=== PATIENT | male | born 1975 | race Caucasian/White ===

== ENCOUNTER 2020-06-15 22:18 | Emergency (ER) | payer BC ==
[2020-06-15] MEDS ORDERED: Sodium Chloride 0.9% 10 ML Syringe FLUSH PRN (22:32)
[2020-06-15] MEDS ORDERED: Sodium Chloride 0.9% 1,000 ML IV SCH (22:45)
--- NOTE | 2020-06-15 23:22 | EDM.PDOC ---
ED HPI GENERAL MEDICAL PROBLEM - General Chief Complaint: Abdominal Pain Stated Complaint: ABDOMINAL PAIN Time Seen by Provider: 06/15/20 22:20 Source of Information: Reports: Patient History Limitations: Reports: No Limitations - History of Present Illness INITIAL COMMENTS - FREE TEXT/NARRATIVE: The patient has been having episodes of intense epigastric pain. He says this happens in the evening each time it occurs. The pain is intense across his upper abdomen. It is not associated with shortness of breath though deep breathing does exacerbate the pain. There is been no nausea or vomiting. He says the pain has lasted up until 4 hours or so. He has not come in for any kind of evaluation for this. Tonight after supper he had this episode about 30 minutes before arrival it started. By the time he got to the emergency department 30 minutes or so later the pain was abating. The pain has not been associated with sweating, shortness of breath, lightheadedness, syncope or near syncope, nor has she had any fever or other symptoms suggestive of acute medical illness or condition leading up to this. The patient takes no medications. He has no chronic conditions. He is a non-smoker. Epigastric Pain Score (Numeric/FACES): 7 - Related Data Allergies Allergy/AdvReac Type Severity Reaction Status Date / Time No Known Allergies Allergy Verified 06/15/20 22:24 Home Meds: Home Meds . [No Known Home Meds] 06/15/20 [History] Past Medical History - Past Surgical History Musculoskeletal Surgical History: Reports: Shoulder Surgery Other Musculoskeletal Surgeries/Procedures:: Rotator cuff Social & Family History - Tobacco Use Tobacco Use Status *Q: Never Tobacco User - Recreational Drug Use Recreational Drug Use: No ED ROS GENERAL - Review of Systems Review Of Systems: Comprehensive ROS is negative, except as noted in HPI. ED EXAM, GI/ABD - Physical Exam Exam: See Below Text/Narrative:: On initial exam the patient was quite uncomfortable with his abdominal pain but without any peritoneal signs. He settled down after this fairly briskly and was examined more thoroughly a short while later. He is alert and in no distress at all. Skin is warm and dry with normal turgor. Head normocephalic atraumatic. ENT grossly normal. Neck is supple without jugular venous distention patient is comfortable lying flat on the gurney. Lungs are clear breath sounds are full and equal bilaterally. Heart is regular without abnormal heart sounds. Abdomen is soft and no pain is elicited on deep palpation. No guarding or rebound. There is no peripheral edema cyanosis or clubbing of the digits. Neurologically the patient is grossly intact with fluent speech normal cognition and no deficits of motor or sensory function. #1 Interpretation EKG Date: 06/15/20 Time: 23:53 Rhythm: NSR Rate (Beats/Min): 70 [place]: Normal P-Wave: Present QRS: Normal ST-T: Normal QT: Normal Comparison: NA - No Prior EKG Course - Vital Signs Text/Narrative:: Patient settled down with supportive care. He received IV fluids. He received a GI cocktail without any sufficient change but by the time he received that his pain had pretty much resolved. He received Protonix 80 mg IV. Discussed fully with patient and his . The patient does not have a doctor but his has a primary care provider and she will make sure that he sees this provider and a referral is made to gastroenterology. There is some concern that the presentation may represent a cardiological issue but that is doubtful. The patient does have an elevated blood pressure though not in a range requiring intervention in the emergency department. If he continues to have blood pressure elevation as an outpatient he will need to be treated for that. It is recommended that for completeness the patient have a cardiology evaluation. Discussed fully with patient and . The presentation seems consistent with an esophageal spasm. Last Recorded V/S: Last Vital Signs Temp 36.5 C 06/15/20 22:20 Pulse 74 06/15/20 22:20 Resp 14 06/15/20 22:20 BP 169/104 H 06/15/20 22:20 Pulse Ox 98 06/15/20 22:20 - Orders/Labs/Meds Orders: Active Orders 24 hr Category Date Time Status EKG Documentation Completion [RC] STAT Care 06/15/20 22:32 Active Peripheral IV Care [RC] . DIRECTED Care 06/15/20 22:35 Active Abdomen Pelvis wo Cont [CT] Stat Exams 06/15/20 22:33 Taken Chest 1V Frontal [CR] Stat Exams 06/15/20 22:32 Taken Sodium Chloride 0.9% [Normal Saline] 1,000 ml Med 06/15/20 22:45 Active IV ASDIRECTED Sodium Chloride 0.9% [Saline Flush] Med 06/15/20 22:32 Active 10 ml FLUSH ASDIRECTED PRN Peripheral IV Insertion Adult [OM.PC] Stat Oth 06/15/20 22:33 Ordered Medication Orders Sodium Chloride (Normal Saline) 1,000 mls @ 150 mls/hr IV ASDIRECTED ONDINA Last Admin: 06/15/20 22:47 Dose: 150 mls/hr Documented by: EVONCOU Sodium Chloride (Sodium Chloride 0.9% 10 Ml Syringe) 10 ml FLUSH ASDIRECTED PRN PRN Reason: Keep Vein Open Last Admin: 06/15/20 22:47 Dose: 10 ml Documented by: EVONCOU Labs: Laboratory Tests 06/15/20 06/15/20 06/16/20 Range/Units 22:46 22:46 00:32 WBC 9.73 H (4.23-9.07) K/mm3 RBC 4.45 L (4.63-6.08) M/mm3 Hgb 13.1 L (13.7-17.5) gm/dl Hct 40.1 (40.1-51.0) % MCV 90.1 (79.0-92.2) fl MCH 29.4 (25.7-32.2) pg MCHC 32.7 (32.2-35.5) g/dl RDW Std Deviation 44.0 H (35.1-43.9) fL Plt Count 205 (163-337) K/mm3 MPV 9.9 (9.4-12.3) fl Neutrophils % (Manual) 29 L (40-60) % Band Neutrophils % 0 (0-10) % Lymphocytes % (Manual) 65 H (20-40) % Atypical Lymphs % 0 % Monocytes % (Manual) 6 (2-10) % Eosinophils % (Manual) 0 L (0.8-7.0) % Basophils % (Manual) 0 L (0.2-1.2) Platelet Estimate Adequate RBC Morph Comment Normal Sodium 144 (136-145) mEq/L Potassium 4.1 (3.5-5.1) mEq/L Chloride 104 (98-107) mEq/L Carbon Dioxide 29 (21-32) mEq/L Anion Gap 15.1 H (5-15) BUN 21 H (7-18) mg/dL Creatinine 1.4 H (0.7-1.3) mg/dL Est Cr Clr Drug Dosing 73.21 mL/min Estimated GFR (MDRD) 56 (>60) mL/min BUN/Creatinine Ratio 15.0 (14-18) Glucose 120 H (74-106) mg/dL Calcium 9.1 (8.5-10.1) mg/dL Magnesium 2.2 (1.8-2.4) mg/dl Total Bilirubin 0.8 (0.2-1.0) mg/dL AST 81 H (15-37) U/L ALT 92 H (16-63) U/L Alkaline Phosphatase 79 (46-116) U/L Troponin I < 0.017 (0.00-0.056) ng/mL C-Reactive Protein 0.6 (<1.0) mg/dL Total Protein 7.6 (6.4-8.2) g/dl Albumin 4.0 (3.4-5.0) g/dl Globulin 3.6 gm/dL Albumin/Globulin Ratio 1.1 (1-2) Amylase 50 (25-115) U/L Lipase 397 H (73-393) U/L Urine Color Yellow (Yellow) Urine Appearance Clear (Clear) Urine pH 6.5 (5.0-8.0) Ur Specific [place] 1.025 (1.005-1.030) Urine Protein Negative (Negative) Urine Glucose (UA) Negative (Negative) Urine Ketones Negative (Negative) Urine Occult Blood Negative (Negative) Urine Nitrite Negative (Negative) Urine Bilirubin Negative (Negative) Urine Urobilinogen 2.0 H (0.2-1.0) Ur Leukocyte Esterase Negative (Negative) Meds: Medications Generic Name Dose Route Start Last Admin Trade Name Freq PRN Reason Stop Dose Admin Sodium Chloride 1,000 mls @ 150 mls/hr 06/15/20 22:45 06/15/20 22:47 Normal Saline IV 150 mls/hr ASDIRECTED ONDINA Administration Sodium Chloride 10 ml 06/15/20 22:32 06/15/20 22:47 Sodium Chloride 0.9% 10 Ml Syringe FLUSH 10 ml ASDIRECTED PRN Administration Keep Vein Open Discontinued Medications Generic Name Dose Route Start Last Admin Trade Name Freq PRN Reason Stop Dose Admin Al Hydroxide/Mg Hydroxide 30 0 ml 06/16/20 00:35 06/16/20 00:41 ml/ Lidocaine HCl 15 ml PO 06/16/20 00:36 45 ml ONETIME ONE Administration Pantoprazole Sodium 80 mg 06/16/20 01:00 06/16/20 01:13 Pantoprazole 40 Mg Vial IVPUSH 06/16/20 01:01 80 mg BOLUS ONE Administration Departure - Departure Time of Disposition: 01:41 Disposition: Home, Self-Care 01 Condition: Good Clinical Impression: Esophageal spasm, Elevated blood pressure reading - Discharge Information Referrals: PCP,None [Primary Care Provider] - Forms: ED Department Discharge Additional Instructions: You have been evaluated for recurrent severe pain which resolved spontaneously after a period of time. This presentation is suspicious for esophageal spasm. It is recommended that you see a furniture mover in the not too distant future. Your primary provider can make that referral. For completeness you also should see a client success director. It is doubtful that your presentation represented a cardiological issue but you should have an echocardiogram and a stress test again in the not too distant future. Your blood pressure readings in the ER are a bit elevated. You may have high blood pressure that needs to be treated. Return to the ER immediately for any recurrence of this type of pain. Return for any fever nausea vomiting chest pain shortness of breath or any other troubling symptoms. Do not hesitate to call 911 in the event of feeling seriously unwell. Sepsis Event Note (ED) - Evaluation Sepsis Screening Result: No Definite Risk - Focused Exam Vital Signs: Vital Signs Temp Pulse Resp BP Pulse Ox 06/15/20 22:20 36.5 C 74 14 169/104 H 98 - My Orders Last 24 Hours: My Active Orders 06/15/20 22:32 EKG Documentation Completion [RC] STAT Chest 1V Frontal [CR] Stat Sodium Chloride 0.9% [Saline Flush] 10 ml FLUSH ASDIRECTED PRN 06/15/20 22:33 Abdomen Pelvis wo Cont [CT] Stat Peripheral IV Insertion Adult [OM.PC] Stat 06/15/20 22:35 Peripheral IV Care [RC] . DIRECTED 06/15/20 22:45 Sodium Chloride 0.9% [Normal Saline] 1,000 ml IV ASDIRECTED - Assessment/Plan Last 24 Hours: My Active Orders 06/15/20 22:32 EKG Documentation Completion [RC] STAT Chest 1V Frontal [CR] Stat Sodium Chloride 0.9% [Saline Flush] 10 ml FLUSH ASDIRECTED PRN 06/15/20 22:33 Abdomen Pelvis wo Cont [CT] Stat Peripheral IV Insertion Adult [OM.PC] Stat 06/15/20 22:35 Peripheral IV Care [RC] . DIRECTED 06/15/20 22:45 Sodium Chloride 0.9% [Normal Saline] 1,000 ml IV ASDIRECTED
[2020-06-16] MEDS ORDERED: Alum Hydrox/Mag Hydrox/Simeth 30 ML, Lidocaine 2% 15 ML PO ONE ×2 (00:35)
[2020-06-16] MEDS ORDERED: Pantoprazole 40 MG Vial IVPUSH ONE (01:00)
--- NOTE | 2020-06-16 09:09 | CR ---
Chest: Frontal view of the chest was obtained. Comparison: No prior chest imaging is available. Heart size and mediastinum are normal. Lungs are clear with no acute parenchymal change. No acute osseous finding is appreciated. Impression: 1. Nothing acute is appreciated on frontal chest x-ray. Diagnostic code #1
--- NOTE | 2020-06-16 09:09 | CT ---
CT abdomen and pelvis Technique: Multiple axial sections were obtained from above the dome of the diaphragm inferiorly through the pubic symphysis. Intravenous and oral contrast was not utilized. Reconstructed coronal and sagittal images were also obtained. Comparison: No prior abdominal imaging is available. Findings: Visualized lung bases show nothing acute. Noncontrast appearance of the liver shows no focal abnormality. Spleen appears within normal limits. Adrenal glands show no nodule. Pancreas shows no discrete abnormality. Gallbladder contains no calcified gallstones. Kidneys show a small low density finding within the lower right kidney which has Hounsfield unit measurements of a small cyst which on the coronal images measures about 8 mm. No additional abnormality is seen within the kidneys. No ureteral calculi are seen. No ureteral dilatation or renal calculi are seen. Aorta shows no aneurysm. No retroperitoneal adenopathy or mesenteric abnormalities are seen. No pelvic mass or adenopathy is seen. Appendix is felt to be visualized and is normal in size. No free fluid or inflammatory change is appreciated. Bone window settings were reviewed which show no acute osseous finding. Impression: 1. Small lower pole right renal cyst. 2. Nothing acute is appreciated on noncontrast CT study of the abdomen and pelvis. Diagnostic code #2 I agree with preliminary report from [facility], finalized on 06/16/20, 12:44 AM CDT
== END 2020-06-16 01:54 | disposition home or self-care (01) ==
LOC: JD.ED 22:18
DX: K22.4 Dyskinesia of esophagus (principal); R03.0 Elevated blood-pressure reading, without diagnosis of hypertension
CPT/HCPCS: 36415; 71045; 74176; 80053; 81003; 82150; 83690; 83735; 84484; 85007; 85027; 86140; 93005; 96374; 99284; A9270; C9113; J7030; 93010; 99283